=== PATIENT | female | born 1950 | race Caucasian/White ===

== ENCOUNTER 2023-08-31 07:56 | Inpatient (IN) | payer MEDICARE, BC ==
[2023-08-31 09:08] LABS: #Basophils 0.06 10x3/uL (0.0-0.2); %Basophils 0.8 % (0.0-1.0); %Eosinophils 3.8 % (0.0-10.0); %Lymphocytes 24.5 % (21.0-51.0); %Monocytes 4.5 % (0.0-10.0); %Neutrophils 66.3 % (42.0-75.0); Hematocrit 52.9 % (36.0-47.0); Hemoglobin 16.6 g/dL (12.0-16.0); Mean Corpuscular HGB CONC 31.4 g/dL (32.0-36.0); Mean Corpuscular Hemoglobin 27.4 pg (27.0-31.0); Mean Corpuscular Volume 87.4 fL (78.0-98.0); Mean Platelet Volume 9.6 fL (7.4-10.4); Platelet Count 201 10x3/uL (130-400); RBC Distribution Width 14.1 % (11.5-14.5); Red Blood Cell (RBC) Count 6.05 mill/uL (4.20-5.40)
[2023-08-31 09:17] LABS: Globulin 3.9 g/dL (2.4-3.5)
[2023-08-31 09:21] LABS: INR-International Normal Ratio 0.9; Prothrombin Time 12.4 sec (12.0-14.7)
[2023-08-31 09:22] LABS: ALT (SGPT) 16 U/L (8-55); AST (SGOT) 19 U/L (5-34); Albumin 3.5 g/dL (3.4-4.8); Alkaline Phosphatase 54 U/L (40-110); Anion Gap 14 mmol/L (10-20); BUN (Urea Nitrogen) 20 mg/dL (9.8-20.1); Bilirubin, Total 0.4 mg/dL (0.2-1.2); Calc. Creatinine Clearance 0 mL/min (70-130); Calcium 9.4 mg/dL (7.8-10.44); Carbon Dioxide 30 mmol/L (23-31); Chloride 102 mmol/L (98-107); D-Dimer Test 0.73 mcg/mL (0.27-0.43); Estimated GFR 59; Glucose 117 mg/dL (83-110); Potassium 4.9 mmol/L (3.5-5.1); Protein, Total 7.4 g/dL (5.8-8.1); Sodium 141 mmol/L (136-145)
[2023-08-31] MEDS ORDERED: methylPREDNISolone Sod Succ 40 MG VIAL ONE (10:02)
[2023-08-31] MEDS ORDERED: diphenhydrAMINE 50 MG/ML VIAL ONE (10:02)
[2023-08-31] MEDS ORDERED: Famotidine/PF 20 mg/2ml Vial ONE (10:03)
[2023-08-31] MEDS ORDERED: Iopamidol-370 76% 500 ML MDV (1 ML CHARGE) ONE (11:20)
[2023-08-31] MEDS ORDERED: methylPREDNISolone Sod Succ/PF 125 MG/2 ML VIAL ONE (12:52)
[2023-08-31] MEDS ORDERED: Acetaminophen 325 MG TAB PO PRN (13:38)
[2023-08-31] MEDS ORDERED: Albuterol 2.5 MG (3 mL) NEB NEB PRN (13:38)
[2023-08-31] MEDS ORDERED: Senokot S 8.6-50 MG TAB PO PRN (13:38)
[2023-08-31] MEDS ORDERED: hydrALAZINE 20 MG/ML VIAL SLOW IVP PRN (13:41)
[2023-08-31 14:07] LABS: Troponin I Less than 0.010 ng/mL (< 0.028)
[2023-08-31] MEDS ORDERED: Azithromycin 500 MG VIAL ONE (14:48)
[2023-08-31] MEDS: Azithromycin 500 MG in Sodium Chloride 0.9% 250 ML 250 ML IVPB SCH (15:30)
[2023-08-31 16:51] LABS: Troponin I Less than 0.010 ng/mL (< 0.028)
[2023-08-31 19:59] VITALS: BMI 23.3
[2023-08-31] MEDS: Famotidine 20 MG TAB PO SCH (20:30)
[2023-09-01 04:52] LABS: #Basophils Less than 0.03 10x3/uL (0.0-0.2); #Eosinphils Less than 0.03 10x3/uL (0.0-0.7); %Basophils 0.1 % (0.0-1.0); %Lymphocytes 12.7 % (21.0-51.0); %Monocytes 2.3 % (0.0-10.0); %Neutrophils 84.7 % (42.0-75.0); Hematocrit 48.9 % (36.0-47.0); Hemoglobin 15.6 g/dL (12.0-16.0); Mean Corpuscular HGB CONC 31.9 g/dL (32.0-36.0); Mean Corpuscular Hemoglobin 27.8 pg (27.0-31.0); Mean Corpuscular Volume 87.2 fL (78.0-98.0); Mean Platelet Volume 9.5 fL (7.4-10.4); Platelet Count 230 10x3/uL (130-400); RBC Distribution Width 13.8 % (11.5-14.5); Red Blood Cell (RBC) Count 5.61 mill/uL (4.20-5.40)
[2023-09-01] MEDS: predniSONE 20 MG TAB PO SCH (09:31)
[2023-09-01] MEDS: Enoxaparin 40 MG (0.4 mL) SYRINGE SC SCH (09:31)
[2023-09-01] MEDS: Amlodipine 5 MG TAB PO SCH (12:30)
[2023-09-02 08:03] VITALS: BP 145/81; TEMP 97.8
[2023-09-02] MEDS: Amlodipine 5 MG TAB PO SCH (08:17)
== END 2023-09-02 11:53 | disposition home or self-care (01) | DRG 191 ==
LOC: ERS 07:56 → ERHOLD 13:12 → 2SW 13:12 → OBSVTOIN 09-01 12:25
PROVIDERS: ADMIT Internal Medicine; ATTEND Internal Medicine
DX: J44.1 Chronic obstructive pulmonary disease with (acute) exacerbation (principal); I42.9 Cardiomyopathy, unspecified; J32.9 Chronic sinusitis, unspecified; I10 Essential (primary) hypertension; F17.210 Nicotine dependence, cigarettes, uncomplicated; D75.1 Secondary polycythemia; Z86.16 Personal history of COVID-19; Z91.041 Radiographic dye allergy status; Z98.890 Other specified postprocedural states; Z71.6 Tobacco abuse counseling; Z88.8 Allergy status to other drugs, medicaments and biological substances
CPT/HCPCS: 36415; 71045; 71275; 80053; 83880; 84484; 85025; 85379; 85610; 85730; 93005; 96372; 96374; 96375; G0378; J0456; J1200; J1650; J2920; J2930; J7050; J7512; Q9967; S0028

== ENCOUNTER 2023-09-04 08:04 | Emergency (ER) | payer MEDICARE, BC ==
[2023-09-04 09:02] LABS: #Basophils 0.03 10x3/uL (0.0-0.2); %Basophils 0.3 % (0.0-1.0); %Eosinophils 1.8 % (0.0-10.0); %Lymphocytes 20.3 % (21.0-51.0); %Monocytes 5.2 % (0.0-10.0); %Neutrophils 72.2 % (42.0-75.0); Hematocrit 51.6 % (36.0-47.0); Hemoglobin 16.4 g/dL (12.0-16.0); Mean Corpuscular HGB CONC 31.8 g/dL (32.0-36.0); Mean Corpuscular Hemoglobin 27.8 pg (27.0-31.0); Mean Corpuscular Volume 87.5 fL (78.0-98.0); Mean Platelet Volume 9.6 fL (7.4-10.4); Platelet Count 243 10x3/uL (130-400); RBC Distribution Width 14.3 % (11.5-14.5)
[2023-09-04 09:16] LABS: ALT (SGPT) 17 U/L (8-55); AST (SGOT) 18 U/L (5-34); Albumin 3.8 g/dL (3.4-4.8); Alkaline Phosphatase 51 U/L (40-110); Anion Gap 14 mmol/L (10-20); BUN (Urea Nitrogen) 24 mg/dL (9.8-20.1); Bilirubin, Total 0.6 mg/dL (0.2-1.2); Calc. Creatinine Clearance 0 mL/min (70-130); Calcium 9.5 mg/dL (7.8-10.44); Carbon Dioxide 29 mmol/L (23-31); Chloride 102 mmol/L (98-107); Estimated GFR 58; Globulin 3.5 g/dL (2.4-3.5); Glucose 128 mg/dL (83-110); Potassium 4.2 mmol/L (3.5-5.1); Protein, Total 7.3 g/dL (5.8-8.1); Sodium 141 mmol/L (136-145)
[2023-09-04 10:10] LABS: PTT 24.8 sec (22.9-36.1); Prothrombin Time 12.6 sec (12.0-14.7)
== END 2023-09-04 10:50 | disposition home or self-care (01) ==
LOC: ERS 08:04
DX: K62.5 Hemorrhage of anus and rectum (principal); I10 Essential (primary) hypertension; Z87.891 Personal history of nicotine dependence
CPT/HCPCS: 36415; 74176; 80053; 82274; 85025; 85610; 85730; 86850; 86900; 86901; 93005

== ENCOUNTER 2023-12-21 05:56 | Day surgery (SDC) | payer MEDICARE, BC ==
[2023-12-20 11:42] VITALS: BMI 23.5
[2023-12-21] MEDS ORDERED: Lidocaine 2% PF 5 ML VIAL ONE (08:07)
[2023-12-21] MEDS ORDERED: PROPOFOL 60 ML ONE (08:07)
== END 2023-12-21 09:53 | disposition home or self-care (01) ==
LOC: SDC 05:56
PROVIDERS: ATTEND Internal Medicine Gastroenterology
PROC: 0DBK8ZZ Excision of Ascending Colon, Via Natural or Artificial Opening Endoscopic (ICD-10-PCS; principal; 2023-12-21)
PROC: 0DBN8ZZ Excision of Sigmoid Colon, Via Natural or Artificial Opening Endoscopic (ICD-10-PCS; 2023-12-21)
DX: D12.2 Benign neoplasm of ascending colon (principal); K63.5 Polyp of colon; K57.30 Diverticulosis of large intestine without perforation or abscess without bleeding; K64.8 Other hemorrhoids; K21.9 Gastro-esophageal reflux disease without esophagitis; J44.9 Chronic obstructive pulmonary disease, unspecified; I10 Essential (primary) hypertension; E78.2 Mixed hyperlipidemia; F17.210 Nicotine dependence, cigarettes, uncomplicated; Z79.899 Other long term (current) drug therapy; Z88.5 Allergy status to narcotic agent; Z91.041 Radiographic dye allergy status
CPT/HCPCS: 45385; J2001; J2704; 88305